=== PATIENT | female | born 1995 | race Caucasian/White ===

== ENCOUNTER 2020-12-22 16:14 | Inpatient (IN) | payer OTHER ==
[~2020-12-22] VITALS: Ht 160 cm; Wt 58.1 kg
[2020-12-22 17:13] LABS: HEMOGLOBIN 10.4 gm/dl (12.3-15.3); RED BLOOD COUNT 3.24 M/UL (4.00-5.10); WHITE BLOOD COUNT 10.9 K/UL (4.5-11.0)
[2020-12-22] MEDS ORDERED: PRENATAL VITAM1 EAC8 PO (18:15)
[2020-12-23] MEDS ORDERED: DOCUSATE SODIU250 MG PO (12:42)
[2020-12-23] MEDS ORDERED: IBUPROFEN600 MG PO (12:42)
[2020-12-23] MEDS ORDERED: FEROSUL325 MG PO (12:42)
[2020-12-24 05:49] LABS: HEMOGLOBIN 9.4 gm/dl (12.3-15.3)
[2020-12-25] MEDS ORDERED: IBUPROFEN600 MG PO (10:05)
[2020-12-25] MEDS ORDERED: DOCUSATE SODIU100 MG PO (10:05)
[2020-12-25] MEDS ORDERED: FERROUS SULFAT325 MG PO (10:05)
== END 2020-12-25 12:04 | disposition home or self-care (01) | DRG 807 ==
LOC: GENOP 16:14 → OB 16:43
PROVIDERS: ADMIT Obstetrics & Gynecology
PROC: 10E0XZZ Delivery of Products of Conception, External Approach (ICD-10-PCS; principal; 2020-12-22)
PROC: 4A1HXCZ Monitoring of Products of Conception, Cardiac Rate, External Approach (ICD-10-PCS; 2020-12-22)
PROC: 0KQM0ZZ Repair Perineum Muscle, Open Approach (ICD-10-PCS; 2020-12-22)
PROC: 3E033VJ Introduction of Other Hormone into Peripheral Vein, Percutaneous Approach (ICD-10-PCS; 2020-12-22)
PROC: 00HU33Z Insertion of Infusion Device into Spinal Canal, Percutaneous Approach (ICD-10-PCS; 2020-12-22)
PROC: 3E0R3BZ Introduction of Anesthetic Agent into Spinal Canal, Percutaneous Approach (ICD-10-PCS; 2020-12-22)
DX: O69.81X0 Labor and delivery complicated by cord around neck, without compression, not applicable or unspecified (principal); Z37.0 Single live birth; Z3A.39 39 weeks gestation of pregnancy; O70.1 Second degree perineal laceration during delivery; Z20.822 Contact with and (suspected) exposure to COVID-19
CPT/HCPCS: 36415; 51702; 81001; 85014; 85018; 85025; J2001; J2405; J2590; J2795; J7120